=== PATIENT | male | born 1995 | race Caucasian/White ===

== ENCOUNTER 2024-05-06 11:58 | Outpatient (REF) | payer SELFPAY ==
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
--- OUTSIDE RECORDS SUMMARY | 2024-05-06 12:49 | XMS_ITS | Encounter Summary ---
Author Organization [employer] Address [address] [facility] 7t [place] [address] Care Team Providers Care Fast Food Services Manager Name Role Phone Unavailable Primary Care Provider Unavailabl e Encounter Details Date Type Department Care Team (Latest Contact Info) Description 05/06/2024 Travel Social History Tobacco Use Types Packs/Day Years Used Date Smoking Tobacco: Every Day Cigarettes Smokeless Tobacco: Never Depression Answer Date Recorded Patient Health Questionnaire-9 [...] Orientation Straight 01/30/2022 10 :22 AM EDT documented as of this encounter Plan of Treatment Not on file documented as of this encounter Visit Diagnoses Not on filedocumented in this encounter Additional Health Concerns Assessment Noted Time PHQ-9 Depression Total Score: 14 025 10:57 AM EST documented as of this encounter
--- OUTSIDE RECORDS SUMMARY | 2024-05-06 12:49 | XMS_ITS | Encounter Summary ---
Author Organization [employer] Address [address] [facility] 7t [place] [address] Care Team Providers Care Nursing Assistants Teacher Name Role Phone Unavailable Primary Care Provider Unavailabl e Reason for Visit * Reason Comments Pre-visit Planning SDOH Screening posit enrique and Tobacco screening positive Encounter Details Date Type Department Care Team ([facility] st Contact Info) Description 04/22/2024 Patient Outreach [facility] [address] [place], [place] [phone] Laura Madden MD [address] [place], [place] [phone] Pre-visit Planning (SDOH Screening positive and Tobacco screening positive) Social History Tobacco Use Types Packs/Day Years Used Date Smoking Tobacco: Never Assessed Housing Stability Answer Date Recorded What is [...] off services in your home? No 04/22/2024 Internet Access Answer Date Recorded Internet Access Q1 Yes 04/22/2024 Internet Access Q2 Not on file 04/22/2024 Sex and Gender Information Value Date Recorded Sex Assigned at Male 01/30/2022 10:22 AM EDT Legal Sex Male 10:22 AM EDT Gender Identity Male 01/30/2022 10:22 AM EDT Sexual Orientation Straight 01/30/2022 10 :22 AM EDT documented as of this encounter Progress Notes * Sweetie Rutledge - 04/22/2024 2:41 PM EST JOSE R sequeira successful outbound call to patient for pre-visit planning. Patient name and confirmed. Patient confirms appt date and time, and has transportation arrangements. Biggest concern for appointment at this time is been having abdominal pain and urinating problems. Patient would like to be check his kidneys and liver. Patient advised to bring to appointment a photo id and insurance card. Appropriate screenings completed in anticipation of appointment. Tobacco screening positive. Will need counseling. SDOH positive. Patient looking for assistance with pest control: bugs and Food insecurities: Sometimes. Referral will be placed. documented in this encounter Plan of Treatment Not on file documented as of this encounter Visit Diagnoses Not on filedocumented in this encounter
--- OUTSIDE RECORDS SUMMARY | 2024-05-06 12:49 | XMS_ITS | Encounter Summary ---
Author Organization [employer] Address [address] 7t [place] [address] Care Team Providers Care Senior Sustainability Consultant Name Role Phone Unavailable Primary Care Provider Unavailabl e Reason for Visit * Reason Onset Date Comments chart prep 05/01/2024 Encounter Details Date Type Department Care Team (Late st Contact Info) Description 05/01/2024 Telephone [facility] [address] [place] [address] Sharyn Bowen MA chart prep Social History Tobacco Use Types Packs/Day Years [...] AM EDT documented as of this encounter Miscellaneous Notes * Telephone Encounter - Sharyn Bowen MA - 05/01/2024 3:52 PM EST .Chart Prep Labs: not applicable Images: not applicable Vaccines due: Covid Due, Tdap Due, Hep B Due, and Flu Due Referrals: Not Applicable Screenings: Not Applicable Overdue care gaps: Sbirt, PHQ-9, Oral Health, and valorie-7 documented in this encounter Plan of Treatment Not on file documented as of this encounter Visit Diagnoses Not on filedocumented in this encounter
--- OUTSIDE RECORDS SUMMARY | 2024-05-06 12:49 | XMS_ITS | Encounter Summary ---
Author Organization [employer] Address [address] [facility] 7t [place] [address] Care Team Providers Care Geodetic Surveyor Name Role Phone Unavailable Primary Care Provider Unavailabl e Reason for Visit * Reason Comments Care Coordination CHW outreach SDOH pe st control - referral LVM Encounter Details Date Type Department Care Team (Latest Contact Info) Description 04/23/2024 Patient Outreach [facility] [address] [place], [place] [phone] Laura Madden MD [address] [place], [place] [phone] Care Coordination (CHW outreach SDOH pest control - referral LVM ) Social History Tobacco Use Types Packs/Day Years [...] as of this encounter Progress Notes * Brendan Kelly - 04/23/2024 10:19 AM EST CHW Brendan Kelly, placed outbound call to patient for assistance with SDOH as a referral was placed by the provider. Patient had screened positive for the following SDOH insecurities. No answer atthis time. Patient's name and were not confirmed. CHW left detailed message and provided contact information requesting return call for assistance. Patient educated on extended clinic hours on Mondays through Wednesdays, and Walk-In Urgent Care Located in [facility] of [facility]. Patient provided with after-hours line for [facility], , which offer night time triage service and option to transfer toon call provider if needed. documented in this encounter Plan of Treatment Not on file documented as of this encounter Visit Diagnoses Not on filedocumented in this encounter
--- OUTSIDE RECORDS SUMMARY | 2024-05-06 12:49 | XMS_ITS | Encounter Summary ---
Author Organization [employer] Address [address] [facility] 7t [place] [address] Care Team Providers Care Service Desk Analyst Name Role Phone Unavailable Primary Care Provider Unavailabl e Encounter Details Date Type Department Care Team (Late st Contact Info) Description 05/05/2024 Telephone [facility]INE [address] [place], [place] [phone] Laura Madden MD [address] [place], [place] [phone] Social History Tobacco Use Types Packs/Day Years Used Date Smoking Tobacco: Never Assessed Depression Answer Date Recorded Patient Health Questionnaire-9 [...] encounter Miscellaneous Notes * Telephone Encounter - Lolly Xaiver - 05/05/2024 9:27 AM EST Pt was called due to insurance being in active , pt verbally stated he will be coming in to insurance enrollment to switch insurances to [employer]ir[employer] documented in this encounter Plan of Treatment Not on file documented as of this encounter Visit Diagnoses Not on filedocumented in this encounter
--- OUTSIDE RECORDS SUMMARY | 2024-05-06 12:49 | XMS_ITS | Encounter Summary ---
Author Organization [employer] Address [address] [facility] 7t [place] [address] Care Team Providers Care Mineral Technologist Name Role Phone Unavailable Primary Care Provider Unavailabl e Encounter Details Date Type Department Care Team (Late st Contact Info) Description 05/06/2024 10:45 AM EST Office Visit [facility] [address] [place], [place] [phone] Laura Madden MD [address] [place], [place] [phone] Routine general medical examination at a health care facility (Primary Dx); Hypertension, unspecified type; Immunity status testing; Screening for diabetes mellitus; Screening for lipid disorders; Vitamin D deficiency; Routine screening for STI (sexually transmitted infection); Urinary frequency Social History Tobacco Use Types Packs/Day Years [...] AM EDT documented as of this encounter Last Filed Vital Signs Vital Sign Reading [...] Mass Index 31.52 05/06/2024 10:55 AM EST documented in this encounter Plan of Treatment Scheduled Orders Name Type Priority Associated Diagnoses Orde r Schedule Syphilis Screen Lab Routine Routine screening for STI (sexually transmitted infection) Expected: 05/06/2024 (Approximate), Expires: 05/06/2025 Hepatitis C Antibody with Reflex to HCV, RNA, Quantitative, Real-Time PCR Lab Routine Routine screening for STI (sexually transmitted infection) Expected: 05/06/2024 (Approximate), Expires: 05/06/2025 Hepatitis B Surface Antibody, Qualitative Lab Routine Routine screening for STI (sexually transmitted infection) Expected: 05/06/2024 (Approximate), Expires: 05/06/2025 Hepatitis B Core Antibody, Total Lab Routine Routine screening for STI (sexually transmitted infection) Expected: 05/06/2024 (Approximate), Expires: 05/06/2025 Chlamydia/N. Gonorrhoeae RNA, TMA, Urogenitial Microbiology Routine Routine screening for STI (sexually transmitted infection) Expected: 05/06/2024 (Approximate), Expires: 05/06/2025 HIV-1/2 Antigen and Antibodies, Fourth Generation, with Reflexes Lab Routine Routine screening for STI (sexually transmitted infection) Expected: 05/06/2024 (Approximate), Expires: 05/06/2025 Hepatitis B surface antigen, EIA Lab Routine Routine screening for STI (sexually transmitted infection) Expected: 05/06/2024 (Approximate), Expires: 05/06/2025 TSH with Reflex to Free T4 Lab Routine Hypertension, unspecified type Expected: 05/06/2024 (Approximate), Expires: 05/06/2025 Hemoglobin A1c Lab Routine Screening for diabetes mellitus Expected: 05/06/2024 (Approximate), Expires: 05/06/2025 Comprehensive Metabolic Panel Lab Routine Hypertension, unspecified type Expected: 05/06/2024 (Approximate), Expires: 05/06/2025 Lipid Panel with Reflex to Direct LDL Lab Routine Hypertension, unspecified type Expected: 05/06/2024 (Approximate), Expires: 05/06/2025 Albumin, Random Urine W/Creatinine Lab Routine Hypertension, unspecified type Expected: 05/06/2024 (Approximate), Expires: 05/06/2025 Vitamin D, 25-Hydroxy, Total, Immunoassay Lab Routine Vitamin D deficiency Expected: 05/06/2024 (Approximate), Expires: 05/06/2025 Urinalysis, Complete, with Reflex to Culture Lab Routine Urinary frequency Expected: 05/06/2024 (Approximate), Expires: 05/06/2025 documented as of this encounter Visit Diagnoses Diagnosis Routine general medical examination at a health care facility- Primary Hypertension, unspecified type Immunity status testing Antibody response examination Screening for diabetes mellitus Screening for lipid disorders Vitamin D deficiency Routine screening for STI (sexually transmitted infection) Screening examination for venereal disease Urinary frequency documented in this encounter Additional Health Concerns Assessment Noted Time PHQ-9 Depression Total Score: 14 025 10:57 AM EST documented as of this encounter
[2024-05-06 13:35] LABS: Appearance Urine Clear; Color Urine Yellow; Glucose Urine UA Negative (Negative); Leukocyte Esterase Urine Negative (Negative); Nitrite Urine Negative (Negative); PH 6.5 (5.0-9.0); Specific Gravity - Urine 1.025 (1.005-1.025); Urine Blood Negative (Negative); Urine Ketones Negative (Negative); Urine Protein Negative (Neg-Trace)
[2024-05-06 13:39] LABS: Bacteria Urine None Seen (None Seen); Hyaline Casts Urine 0-2 /LPF (0-2); RBC Urine 0-2 /HPF (0-2); Squamous Epithelial Cell Urine 0-2 /HPF (0-2); WBC Urine 0-5 /HPF (0-5)
[2024-05-06 13:51] LABS: Estimated Average Glucose 97 mg/dL; Hemoglobin A1C 134.5093 umol/L; Total Hemoglobin (HGBA1C) 4378.0594 umol/L
[2024-05-06 14:10] LABS: Syphilis Screen Nonreactive (Nonreactive)
[2024-05-06 14:11] LABS: HBS Num1 0.96 mIU/mL (0-7.99); HBc Num1 0.09 S/CO (0.00-0.79); HBsAGNum1 0.29 S/CO (0.00-0.99); HIV AB/AG Nonreactive (Nonreactive); HIV Num 1 0.05 S/CO (0.00-0.99); Hepatitis B Core Antibody Nonreactive (Nonreactive); Hepatitis B Surface Antigen Negative (Negative); ~HepC Num1 0.07 S/CO (0.00-0.79); ~Hepatitis B Surface Antibody NONREACTIVE (Nonreactive); ~Hepatitis C Antibody Nonreactive (Nonreactive)
[2024-05-06 14:12] LABS: Alanine Aminotransferase 33 U/L (0-40); Albumin Level 4.4 g/dL (3.5-5.0); Alkaline Phosphatase 56 U/L (39-117); Anion Gap 17 (12-20); Aspartate Amino Transferase 32 U/L (5-37); Bilirubin Total 0.3 mg/dL (0.0-1.0); Blood Urea Nitrogen 15 mg/dL (9-16); Calcium 9.1 mg/dL (8.4-10.2); Carbon Dioxide 23 mmol/L (22-29); Chloride 106 mmol/L (96-108); Cholesterol 124 mg/dL (<200); Estimated Glomerular Filt Rate > 60; Glucose Random 90 mg/dL (60-115); HDL Cholesterol 36 mg/dL (>40); LDL Cholesterol Calculated 59 mg/dL (<100); Potassium 4.1 mmol/L (3.3-5.1); Sodium 142 mmol/L (135-145); Total Protein 7.6 g/dL (6.5-8.0); Triglycerides 145 mg/dL (<150)
[2024-05-06 14:15] LABS: TSH reflex Free T4 1.23 uIU/mL (0.32-4.0); Vitamin D 25-OH Total 153.5 ng/mL (>30)
[2024-05-06 15:30] LABS: CT PCR NOT DETECTED (Not Detect.); NG PCR NOT DETECTED (Not Detect.)
[2024-05-06 17:18] LABS: Reflex LDLD? No
== END 2024-05-06 11:59 | disposition home or self-care (01) ==
LOC: HO.HHCL 11:58
PROVIDERS: Visit Provider Family Medicine
DX: Z11.3 Encounter for screening for infections with a predominantly sexual mode of transmission (principal); R35.0 Frequency of micturition; I10 Essential (primary) hypertension; Z13.1 Encounter for screening for diabetes mellitus; E55.9 Vitamin D deficiency, unspecified
CPT/HCPCS: 80053; 80061; 81001; 82306; 83036; 84443; 86704; 86706; 86780; 86803; 87340; 87389; 87491; 87591

== ENCOUNTER 2024-07-31 15:32 | Outpatient (REF) | payer MEDICAID, SELFPAY ==
[2024-07-31 16:30] LABS: Alanine Aminotransferase 35 U/L (0-40); Albumin Level 4.5 g/dL (3.5-5.0); Alkaline Phosphatase 50 U/L (39-117); Aspartate Amino Transferase 29 U/L (5-37); Bilirubin Direct 0.1 mg/dL (0.0-0.5); Bilirubin Total 0.3 mg/dL (0.0-1.0); Total Protein 7.2 g/dL (6.5-8.0)
[2024-07-31 16:34] LABS: Valproate 52.6 mcg/mL (50.0-100.0)
--- OUTSIDE RECORDS SUMMARY | 2024-07-31 17:16 | XMS_ITS | Encounter Summary ---
Author Organization [employer] Address [address] [facility] 7t [place] [address] Care Team Providers Care Glazier Artist Name Role Phone Laura Madden MD Primary Care Provider [phone] Encounter Details Date Type Department Care Team (Late st Contact Info) Description 05/15/2024 Orders Only [facility] MED[facility]INE [address] [place], [place] [phone] Laura Madden MD [address] [place] [address] Social History Tobacco Use Types Packs/Day Years [...] AM EST documented as of this encounter Care Teams Glazier Artist Relationship Specialty Start Date End Date Laura Madden MD [address] [place] [address] PCP - General Family Medicine 05/13/24 documented as of this encounter
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
== END 2024-07-31 15:33 | disposition home or self-care (01) ==
LOC: HO.LAB 15:32
PROVIDERS: PCP Family Medicine; Visit Provider Psychiatry & Neurology Neurology
DX: G40.909 Epilepsy, unspecified, not intractable, without status epilepticus (principal); Z79.899 Other long term (current) drug therapy
CPT/HCPCS: 36415; 80076; 80164